=== PATIENT | female | born 1950 | race Caucasian/White ===

== ENCOUNTER → 2016-11-24 | Outpatient (CLI) | payer OTHER | END | disposition home or self-care (01) | LOC: CFH 14:16 | PROVIDERS: ATTEND Internal Medicine | DX: I51.7 Cardiomegaly (principal); I70.0 Atherosclerosis of aorta; J92.9 Pleural plaque without asbestos; M47.894 Other spondylosis, thoracic region; K76.9 Liver disease, unspecified | CPT/HCPCS: 71250 ==

== ENCOUNTER → 2018-07-26 | Outpatient (CLI) | payer MEDICARE | END | disposition home or self-care (01) | LOC: CFH 15:33 | PROVIDERS: ATTEND Nurse Practitioner | DX: J98.4 Other disorders of lung (principal); I70.0 Atherosclerosis of aorta; K76.89 Other specified diseases of liver | CPT/HCPCS: 71250 ==